=== PATIENT | male | born 1990 | race American Indian/Alaskan Native ===

== ENCOUNTER 2023-06-01 02:10 | Emergency (ER) | payer OTHER ==
[2023-06-01] MEDS ORDERED: Lidocaine/Epineph/Tetracaine 3 ML Syringe TOP ONE (02:27)
[2023-06-01] MEDS ORDERED: Lidocaine 1% 10 ML MDV INJECT ONE (02:27)
== END 2023-06-01 03:40 | disposition home or self-care (01) ==
LOC: JD.ED 02:10
DX: S01.81XA Laceration without foreign body of other part of head, initial encounter (principal); W20.8XXA Other cause of strike by thrown, projected or falling object, initial encounter
CPT/HCPCS: 12011; 99282; A9270; J3490